=== PATIENT | male | born 1995 | race Caucasian/White ===

== ENCOUNTER 2021-04-26 12:55 | Emergency (ER) | payer OTHER, SELFPAY ==
[~2021-04-26] VITALS: Ht 198.1 cm; Wt 113.6 kg
[2021-04-26 12:55] VITALS: BP 149/85
[2021-04-26] MEDS ORDERED: LIDOCAINE 1% MDV 20ML VIAL SC ONE (14:15)
[2021-04-26] MEDS ORDERED: BOOSTRIX/ADACEL VACCINE (DIPHTH/PERTUSS/ACELL/TETANUS) 0.5ML SYR IM ONE (14:30)
[2021-04-26] MEDS ORDERED: CEPH500T PO (15:46)
[2021-04-26] MEDS ORDERED: NEOSPORIN TOP OINT 15GM TOP ONE (15:50)
== END 2021-04-26 16:21 | disposition home or self-care (01) ==
LOC: M ED 12:55
DX: S61.215A Laceration without foreign body of left ring finger without damage to nail, initial encounter (principal); W26.8XXA Contact with other sharp object(s), not elsewhere classified, initial encounter; Y99.0 Civilian activity done for income or pay; Y92.9 Unspecified place or not applicable; Y93.9 Activity, unspecified